=== PATIENT | male | born 1985 | race Two or more races ===

== ENCOUNTER 2017-07-02 08:42 | Emergency (ER) | payer OTHER ==
[2017-07-02 08:44] VITALS: BP 140/77; BMI 31.8
--- NOTE | 2017-07-02 09:11 | DR.GENAD ---
HPI - PCP Primary Care Physician: NFD - Complaint/Symptoms Chief Complaint Doctors Comments: Patient was at work and stepped on a nail that punctured his left foot. Patient had on leather work shoes. Tetanus up to date Chief Complaint:: PT. 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 - Source History Provided: Patient - Mode of Arrival Mode of Arrival: Ambulatory - Timing Onset of Chief Complaint: 07/02/17 PMH - PMH Past Medical History: No Past Surgical History: No Surgical History: No History - Family History History of Family Medical Conditions: No - Social History Does patient currently use any type of tobacco product: No Have you used tobacco products in the last 12 months: No Type of Tobacco Use: None Does any household member use tobacco: No Alcohol Use: None Do you use any recreational Drugs:: No Lives With: Family Lives Where: Home - infectious screening In the last 2 months have you had wt loss of >10#?: NO Have you had fever, night sweats or hemotysis?: No Have you traveled outside the country in the last 6 months?: No Isolation: Standard ROS - Review of Systems Constitutional: No Symptoms Reported Eyes: No Symptoms Reported ENTM: No Symptoms Reported Respiratoy: No Symptoms Reported Cardiovascular: No Symptoms Reported Gastrointestinal/Abdominal: No Symptoms Reported Genitourinary: No Symptoms Reported Neurological: No Symptoms Reported Musculoskeletal: Foot (left) Integumentary: Wound (puncture wound left foot) Hematologic/Lymphatic: No Symptoms Reported Endocrine: No Symptoms Reported Psychiatric: No Symptoms Reported All Other Systems: Reviewed and Negative PE - Vital Signs Vitals: Temperature 98.4 F Pulse Rate 74 Respiratory Rate 17 Blood Pressure 140/77 O2 Sat by Pulse Oximetry 99 - General Limitations: No Limitations General Appearance: Alert, In No Apparent Distress - Head Head Exam: Normal Inspection, Atraumatic - Eyes Eye exam: Normal Appearance, PERRL, EOMI - ENT ENT Exam: Normal Exam External Ear Exam: Normal External Inspection TM/Canal Exam: Bilateral Normal Nose Exam: Normal Nose Exam Mouth Exam: Normal Inspection Throat Exam: Normal Inspection - Neck Neck Exam: Normal Inspection - Chest Chest Inspection: Normal Inspection - Respiratory Respiratory Exam: Normal Lung Sounds Bilat Respiratory Exam: Bilateral Clear to Auscultation - Cardiovascular Cardiovascular Exam: Regular Rate, Normal Rhythm - Abdominal Exam Abdominal Exam: Normal Inspection, Normal Bowel Sounds Abdominal Tenderness: negative: RUQ, RLQ, LUQ, LLQ, Epigastrium, Suprapubic, Diffuse, Mild, Moderate, Severe, Other - Extremities Extremities Exam: Normal Inspection, Full ROM, Other (puncture wound plalntar surface of left foot) - Back Back Exam: Normal Inspection - Neurologic Neurological Exam: Alert, Oriented X3, CN II-XII Intact - Psychiatric Psychiatric Exam: Normal Affect - Skin Skin Exam: Warm, Dry ROR - XRAY XRAY Interpreted by: Radiologist (Foot: no evidence of foreign body) - Diagnosis Discharge Problem: Puncture wound of foot, left Qualifiers: Encounter type: initial encounter Qualified Code(s): S91.332A - Puncture wound without foreign body, left foot, initial encounter - Discharge Plan Condition: Stable - Follow ups/Referrals Follow ups/Referrals: NFD,None [Primary Care Provider] - 3 days - Instructions
--- NOTE | 2017-07-02 09:37 | RAD ---
History: Stepped on nail Study: Left foot three views Findings: Three views the left foot demonstrate normal alignment and joint spacing. No fracture, bony destructive process or radiopaque foreign body is identified. Impression: Normal left foot. Reported By:
[2017-07-02] MEDS ORDERED: ADACEL TDaP IM ONE ×2 (09:55)
== END 2017-07-02 10:00 | disposition home or self-care (01) ==
LOC: ER 08:50
DX: S91.332A Puncture wound without foreign body, left foot, initial encounter (principal); W45.8XXA Other foreign body or object entering through skin, initial encounter; Y92.69 Other specified industrial and construction area as the place of occurrence of the external cause
CPT/HCPCS: 73630; 90471; 99000; 99282